=== PATIENT | male | born 1950 ===

== ENCOUNTER → 2022-01-18 | Outpatient (CLI) | payer MEDICAID ==
[~2022-01-18] VITALS: Ht 165.1 cm; Wt 56.5 kg
[~2022-01-18] MED LIST: COLACE 100100 MG/CAP PO; DAZIDOX10 MG PO; LEVAQUIN 2250 MG/TAB PO
[2022-01-18 14:11] VITALS: BP 110/65; PULSE 85; TEMP 98.8
--- NOTE | 2022-01-18 15:15 | NUR ---
Pt to procedure room with c-arm. Dr West injected contrast into neph tube and watched with fluoroscopy. Neph tube remains in place. 1525 Pt back to holding area. Daughter back and Dr West talks with daughter. Pt dressed and Int removed with catheter tip intact. 2x2 and coban to site. Pt and daughter out to car per ambulation.
== END ==
LOC: COL.RAD 13:30
DX: N13.9 Obstructive and reflux uropathy, unspecified (principal)
CPT/HCPCS: Q9967